=== PATIENT | female | born 1925 | race Caucasian/White ===

== ENCOUNTER 2016-08-19 18:26 | Inpatient (IN) | payer OTHER ==
[~2016-08-19] VITALS: Ht 165.1 cm; Wt 65.2 kg
[2016-08-19 19:07] LABS: HEMATOCRIT 35.8 % (36.0-46.0); MCHC 33.2 G/DL (30.0-36.0); MCV 90.2 FL (83-99); PLATELET COUNT 217 K/uL (156-360); RBC DIS.WIDTH-CV 13.2 % (11.8-14.6); RBC DIS.WIDTH-SD 43.5 % (39-53); RED BLOOD COUNT 3.97 M/uL (3.80-5.20); WHITE BLOOD COUNT 8.8 K/uL (4.1-10.2)
[2016-08-19 19:22] LABS: CHLORIDE 103 mEq/L (99-109); POTASSIUM 3.7 mEq/L (3.7-5.4); SODIUM 139 mEq/L (136-147)
[2016-08-19 19:24] LABS: GLUCOSE 171 mg/dL (70-99)
[2016-08-19 19:26] LABS: ANION GAP 13 MEQ/L (2-14); TOTAL BILIRUBIN 0.5 mg/dL (0.0-1.0)
[2016-08-19 19:28] LABS: ALKALINE PHOSPHATASE 53 IU/L (3-129); GFR ESTIMATE (CALCULATED) > 59 mL/min/
[2016-08-19 19:29] LABS: UREA NITROGEN (BUN) 24 mg/dL (9-23)
[2016-08-19 19:31] LABS: LIPASE 22 U/L (1.0-51.0)
[2016-08-19 21:28] LABS: ADD MIUA? YES; BILIRUBIN NEGATIVE; BLOOD MODERATE; COLOR YELLOW ((YELLOW)); GLUCOSE (STRIP) NEGATIVE; KETONES 20; LEUKOCYTES NEGATIVE; NITRITE NEGATIVE; PROTEIN (STRIP) NEGATIVE; SPECIFIC GRAVITY 1.027 (1.000-1.030); UROBILINOGEN 0.2 MG/DL (0.2-1.0)
[2016-08-19 22:03] LABS: BACTERIA RARE /HPF; EPITHELIAL CELLS RARE /HPF; HYALINE CASTS 0-5 /LPF; MUCUS TRACE /LPF; RED BLOOD CELLS 0-5 /HPF (0-5); UCUL ADDED? NO; WHITE BLOOD CELLS 0-5 /HPF (0-5)
[2016-08-19] MEDS ORDERED: TRAMADOL HCL50 MG PO (22:11)
[2016-08-19] MEDS ORDERED: CELECOXIB100 MG PO (22:12)
[2016-08-19] MEDS ORDERED: BENICAR5 MG PO (22:12)
[2016-08-20 01:28] VITALS: BP 164/80
[2016-08-20 07:36] VITALS: BP 133/59
[2016-08-20 11:28] VITALS: BP 141/77
[2016-08-20 16:03] VITALS: BP 140/67
[2016-08-20 20:18] VITALS: BP 148/67
[2016-08-21 06:50] VITALS: BP 159/74
[2016-08-21 07:30] LABS: HEMATOCRIT 42.4 % (36.0-46.0); MCH 30.2 PG (29.0-34.0); MCHC 33.5 G/DL (30.0-36.0); MCV 90.2 FL (83-99); PLATELET COUNT 227 K/uL (156-360); RBC DIS.WIDTH-CV 13.2 % (11.8-14.6); RBC DIS.WIDTH-SD 43.6 % (39-53)
[2016-08-21 07:55] LABS: ALKALINE PHOSPHATASE 54 IU/L (3-129); ANION GAP 8 MEQ/L (2-14); CHLORIDE 102 MEQ/L (99-109); GFR ESTIMATE (CALCULATED) > 59 mL/min/; GLUCOSE 152 mg/dL (70-99); SAMPLE HEMOLYSIS CHECK 0; SAMPLE ICTERIC CHECK 0; SAMPLE LIPEMIA CHECK 0; SODIUM 134 MEQ/L (136-147); TOTAL BILIRUBIN 0.7 MG/DL (0.0-1.0); UREA NITROGEN (BUN) 17 mg/dL (9-23)
[2016-08-21 07:57] LABS: POTASSIUM 4.5 MEQ/L (3.7-5.4)
[2016-08-21 11:30] VITALS: BP 103/60
[2016-08-21] MEDS ORDERED: BENICAR20 MG PO (13:38)
[2016-08-21] MEDS ORDERED: ULTRAM50 MG PO (13:39)
[2016-08-21 16:28] VITALS: BP 129/60
[2016-08-21 18:21] LABS: POINT-OF-CARE METER ID UU14162508
[2016-08-21 18:34] VITALS: BP 120/65
[2016-08-21 22:47] VITALS: BP 162/67
[2016-08-22 08:05] VITALS: BP 143/63
[2016-08-22 11:37] VITALS: BP 150/62
[2016-08-22 15:38] VITALS: BP 132/74
[2016-08-22 20:14] VITALS: BP 148/68
[2016-08-23 04:01] VITALS: BP 158/64
[2016-08-23 08:14] VITALS: BP 175/73
[2016-08-23 11:51] VITALS: BP 176/77
[2016-08-23 19:42] VITALS: BP 131/93
[2016-08-24 00:11] VITALS: BP 142/68
[2016-08-24 04:07] VITALS: BP 144/66
[2016-08-24 06:17] LABS: HEMATOCRIT 35.2 % (36.0-46.0); MCH 30.2 PG (29.0-34.0); MCHC 33.8 G/DL (30.0-36.0); MCV 89.3 FL (83-99); MEAN PLAT.VOLUME 11.1 uM^3 (9.5-12.4); PLATELET COUNT 204 K/uL (156-360); RBC DIS.WIDTH-CV 13.2 % (11.8-14.6); RBC DIS.WIDTH-SD 43.2 % (39-53); RED BLOOD COUNT 3.94 M/uL (3.80-5.20)
[2016-08-24 06:24] LABS: ALKALINE PHOSPHATASE 46 IU/L (3-129); ANION GAP 13 MEQ/L (2-14); CHLORIDE 105 MEQ/L (99-109); GFR ESTIMATE (CALCULATED) > 59 mL/min/; SAMPLE HEMOLYSIS CHECK 0; SAMPLE ICTERIC CHECK 0; SAMPLE LIPEMIA CHECK 0; UREA NITROGEN (BUN) 23 mg/dL (9-23)
[2016-08-24 06:25] LABS: GLUCOSE 77 mg/dL (70-99); POTASSIUM 3.3 MEQ/L (3.7-5.4); SODIUM 141 MEQ/L (136-147); TOTAL BILIRUBIN 1.2 MG/DL (0.0-1.0)
[2016-08-24 08:55] VITALS: BP 139/90
[2016-08-24 12:53] VITALS: BP 142/80
[2016-08-24 16:18] VITALS: BP 160/71
[2016-08-24 19:50] VITALS: BP 146/74
[2016-08-25] VITALS (7 sets, daily range): BP systolic 130–176; BP diastolic 60–81
[2016-08-25 09:23] LABS: ANION GAP 11 MEQ/L (2-14); CHLORIDE 103 MEQ/L (99-109); GFR ESTIMATE (CALCULATED) > 59 mL/min/; GLUCOSE 81 mg/dL (70-99); POTASSIUM 3.7 MEQ/L (3.7-5.4); SAMPLE HEMOLYSIS CHECK 0; SAMPLE ICTERIC CHECK 0; SAMPLE LIPEMIA CHECK 0; SODIUM 138 MEQ/L (136-147); UREA NITROGEN (BUN) 26 mg/dL (9-23)
[2016-08-26 04:03] VITALS: BP 140/65
[2016-08-26 07:39] VITALS: BP 151/64
[2016-08-26 11:48] VITALS: BP 118/60
[2016-08-26 16:11] VITALS: BP 147/67
[2016-08-26 19:03] VITALS: BP 164/76
[2016-08-26 23:30] VITALS: BP 155/68
[2016-08-27 05:39] VITALS: BP 165/75
[2016-08-27 08:15] LABS: HEMATOCRIT 34.2 % (36.0-46.0); MCH 29.9 PG (29.0-34.0); MCV 90.5 FL (83-99); RBC DIS.WIDTH-CV 13.4 % (11.8-14.6); RBC DIS.WIDTH-SD 44.8 % (39-53); RED BLOOD COUNT 3.78 M/uL (3.80-5.20); WHITE BLOOD COUNT 6.5 K/uL (4.1-10.2)
[2016-08-27 08:20] LABS: MEAN PLAT.VOLUME 10.8 uM^3 (9.5-12.4); PLATELET COUNT 216 K/uL (156-360)
[2016-08-27 08:30] VITALS: BP 151/63
[2016-08-27 08:33] LABS: ANION GAP 7 MEQ/L (2-14); CHLORIDE 105 MEQ/L (99-109); POTASSIUM 3.7 MEQ/L (3.7-5.4); SAMPLE HEMOLYSIS CHECK 0; SAMPLE ICTERIC CHECK 0; SAMPLE LIPEMIA CHECK 0; SODIUM 142 MEQ/L (136-147)
[2016-08-27 08:39] LABS: GFR ESTIMATE (CALCULATED) > 59 mL/min/; GLUCOSE 85 mg/dL (70-99); UREA NITROGEN (BUN) 9 mg/dL (9-23)
== END 2016-08-27 14:17 | disposition home or self-care (01) | DRG 336 ==
LOC: EME 18:26 → 2EASTP 21:46 → EDOF 21:46 → 4EAST 21:46 → 2EASTP 08-20 01:09 → 4EAST 08-21 21:52
PROVIDERS: Physician Assistant; Physician Assistant Surgical; Surgery
PROC: 0DN80ZZ Release Small Intestine, Open Approach (ICD-10-PCS; principal; 2016-08-19)
DX: K56.60 Unspecified intestinal obstruction (principal); I11.0 Hypertensive heart disease with heart failure; R18.8 Other ascites; F32.9 Major depressive disorder, single episode, unspecified
CPT/HCPCS: 71275; 74020; 74174; 80048; 80048 91; 80053; 81003; 82948; 83605; 83690; 85027; 87040; 94799; 97530 GO; 97530 GP; 99281; 99285; J0690; J1100; J1170; J1644; J1885; J2270; J2405; J2765; J3010; J7030